=== PATIENT | female | born 2000 | race Caucasian/White ===

== ENCOUNTER 2021-03-14 21:18 | Emergency (ER) | payer MEDICAID, OTHER ==
[~2021-03-14] VITALS: Ht 165.1 cm; Wt 59.9 kg
[2021-03-14 22:07] LABS: BASOPHILS % (AUTO) 0.3 % (0-1); EOSINOPHILS % (AUTO) 0.3 % (0-6); HEMATOCRIT 42.8 % (35.0-45.0); HEMOGLOBIN 14.5 g/dl (12.0-16.0); LYMPHOCYTES # (AUTO) 1.4 X10'3 (1.1-4.8); LYMPHOCYTES % (AUTO) 15.4 % (21-51); MEAN CORPUSCULAR HEMOGLOBIN 31.9 PG (27.0-31.0); MEAN CORPUSCULAR HGB CONC 33.8 g/dL (33.0-36.5); MEAN CORPUSCULAR VOLUME 94.5 FL (78-98); MEAN PLATELET VOLUME 8.3 FL (7.4-10.4); MONOCYTES # (AUTO) 0.6 X10'3 (0-0.9); MONOCYTES % (AUTO) 6.1 % (2-12); NEUTROPHILS # (AUTO) 7.1 X10'3 (1.8-7.7); NEUTROPHILS % (AUTO) 77.9 % (42-75); PLATELET COUNT 334 X10'3 (140-440); RED BLOOD COUNT 4.53 X10'6 (4.20-5.60); RED CELL DISTRIBUTION WIDTH 12.8 % (11.5-14.5); WHITE BLOOD COUNT 9.1 X10'3 (4.5-11.0)
[2021-03-14 22:12] LABS: URINE HCG NEGATIVE (NEG)
[2021-03-14 22:21] LABS: ALANINE AMINOTRANSFERASE 21 U/L (12-78); ALBUMIN/GLOBULIN RATIO 1.1 (1.1-1.5); ALKALINE PHOSPHATASE 81 IU/L (46-116); ANION GAP 11 (8-16); ASPARTATE AMINO TRANSFERASE 11 U/L (10-37); BILIRUBIN,TOTAL 1.3 MG/DL (0.1-1.0); BLOOD UREA NITROGEN 5 MG/DL (7-18); CHLORIDE 106 MMOL/L (99-107); CREATININE 0.84 MG/DL (0.40-0.90); GLUCOSE 114 MG/DL (70-104); POTASSIUM 3.2 MMOL/L (3.5-5.1); SODIUM 141 MMOL/L (135-145); TOTAL CARBON DIOXIDE 24.3 MMOL/L (24-32); TOTAL PROTEIN 7.6 G/DL (6.4-8.2); eGFR 86 ML/MIN
[2021-03-14 22:25] LABS: URINE AMPHETAMINE SCREEN NEGATIVE (Neg); URINE BARBITUATE SCREEN NEGATIVE (Neg); URINE BENZODIAZEPINES SCREEN NEGATIVE (Neg); URINE CANNABINOID SCREEN POSITIVE (Neg); URINE COCAINE SCREEN NEGATIVE (Neg); URINE METHADONE SCREEN NEGATIVE (Neg); URINE OPIATE SCREEN NEGATIVE (Neg); URINE PHENCYCLIDINE SCREEN NEGATIVE (Neg)
[2021-03-14 22:26] LABS: CLARITY,URINE CLOUDY (Clear); COLOR,URINE YELLOW (Yellow); GLUCOSE, URINE NEGATIVE (Neg); KETONES,URINE 40 mg/dl (Neg); PROTEIN,URINE NEGATIVE (Neg); UA COLLECTION TYPE CLN CATCH MIDSTREAM
[2021-03-14 22:27] LABS: LEUKOCYTE ESTERASE ,URINE NEGATIVE (Neg); NITRITES, URINE NEGATIVE (Neg); OCCULT BLOOD,URINE SMALL (Neg); UROBILINOGEN,URINE 0.2 E.U/dL (0.2-1.0)
[2021-03-14 22:37] LABS: ETHANOL < 0.010 GM/DL (0.0-0.010)
[2021-03-14 22:45] LABS: ACETAMINOPHEN < 2.0 UG/ML (10-30)
[2021-03-14 22:47] LABS: BACTERIA,URINE 1+ /HPF (Neg); MUCUS STRANDS MANY /LPF (Neg); SQUAMOUS EPITHELIAL CELL,UR MANY /LPF (FEW)
[2021-03-14 22:48] LABS: RENAL CELLS, URINE FEW /HPF; WBC,URINE 0-4 /HPF (0-4)
[2021-03-14] MEDS ORDERED: potassium Cl 20 mEq SR tablet PO ONE (23:00)
--- NOTE | 2021-03-14 23:51 | NUR ---
Pt arrived in ED[facility] from main ER. Pt uses pronoun he/him/his. Pt states he is feeling suicidal because his girlfriend left him. Pt states that he has a history of self harm and shows bite grover on his knees. The skin is not broken but visible redness showing teeth pattern. Pt states his plan is to go out to the [place] and overdose on grandmothers "pills and injectables." Pt states "I dont know what the pills are, I havent researched dosages, I would just take them. This isnt a cry for help, or for attention, I just really want to . Pt is tearful.
[2021-03-15] MEDS ORDERED: TEST75GE TOP ×2 (00:15→00:23)
[2021-03-15] MEDS ORDERED: TEST200V10 IM (00:17)
--- NOTE | 2021-03-15 02:52 | NUR ---
pt awake sitting quietly in bed.
--- NOTE | 2021-03-15 05:00 | NUR ---
pt is laying in bed asleep, rr even and unlabored
--- NOTE | 2021-03-15 06:00 | NUR ---
Pt. asleep in bed in supine position. Normal R&R of respirations observed. Pt. in no apparent distress.
--- NOTE | 2021-03-15 07:53 | NUR ---
Pt. awake and sitting up in bed. 1:1 done at bedside, pt. reports SI with plan to inject herself with her grandmothers migraine medication. Pt. denies previous suicide attempts. Pt. reports feeling like she has nothing to live for after pt.'s girlfriend broke up with her. Pt. states, "I was with her for 10 years, that's half of my life". Pt. denies HI, A/V hallucinations. Pt. eating breakfast.
[2021-03-15] MEDS ORDERED: TESTOSTERONE TP SCH (08:00)
--- NOTE | 2021-03-15 10:00 | NUR ---
Pt. awake in bed and resting in high fowlers position. Pt. reports she will call her grandma to bring in her topical Testosterone ointment.
--- NOTE | 2021-03-15 11:05 | NUR ---
Pt. placed on [id number] by [facility] protective services social worker.
--- NOTE | 2021-03-15 13:00 | NUR ---
Pt. speak with admitting department. Pt. approved for emergency [facility].
--- NOTE | 2021-03-15 15:00 | NUR ---
Pt. had phone call with grandma. Pt. became tearful and hung up phone. Pt. does not want to talk about her feelings.
--- NOTE | 2021-03-15 15:00 | NUR ---
Pt. awake and reading in bed. Pt. in no apparent distress.
--- NOTE | 2021-03-15 17:00 | NUR ---
Pt. awake and reading book in bed. Pt. in no apparent distress.
[2021-03-15] MEDS ORDERED: potassium Cl 20 mEq SR tablet PO STA (17:10)
--- NOTE | 2021-03-15 18:25 | NUR ---
Received patient sitting up in bed; eating dinner. Patient is calm, cooperative and does not appear to be in distress.
--- NOTE | 2021-03-15 20:09 | NUR ---
Patient's SO visited and vist appeared to go well. Patient now standing up reading and does not appear to be in any distress.
--- NOTE | 2021-03-15 21:52 | NUR ---
Patient laying in bed awake; appears to be restless as patient continuously repositioning. No apparent distress observed.
--- NOTE | 2021-03-15 23:59 | NUR ---
Patient reading in bed; no apparent distress observed at this time.
--- NOTE | 2021-03-16 02:04 | NUR ---
Patient sleeping in bed and does not appear to be in distress. Even non labored respirations and self repositioning.
--- NOTE | 2021-03-16 04:08 | NUR ---
Patient up to use the restroom; no apparent distress observed.
--- NOTE | 2021-03-16 06:21 | NUR ---
Patient sitting up rocking in bed. Patient is quiet. Patient then moved to laying on right side and no rocking seen. Continue to monitor.
--- NOTE | 2021-03-16 07:51 | NUR ---
Patient awake and alert and sitting up in bed after using the BR. RN spoke with patient in room. Patient denies feeling suicidal at this time. Patient states her girlfriend came to see her and she feels even more confused. RN advised patient "one day at a time." Patient is not feeling anxious at this time and will advised the RN if she starts feeling anxious. Continue to monitor.
--- NOTE | 2021-03-16 09:23 | NUR ---
Patient just got off the phone and was crying. Patient was talking to someone about her girlfriend. Continue to monitor.
--- NOTE | 2021-03-16 11:10 | NUR ---
Patient reading a book. No distress observed. Continue to monitor.
--- NOTE | 2021-03-16 12:40 | NUR ---
RN gave patient toothbrush, toothpaste, soap, shampoo, brush, and deodorant with towels and basin. Patient was appreciative. Continue to monitor.
--- NOTE | 2021-03-16 13:15 | NUR ---
Patient eating lunch. No distress observed. Continue to monitor.
--- NOTE | 2021-03-16 15:10 | NUR ---
Patient's girlfriend visiting patient. Patient and girlfriend laying in bed together. RN advised both that they are not allowed to lay in bed together. GF moved to chair. Patient and GF seemed to be doing well. Continue to monitor.
--- NOTE | 2021-03-16 17:09 | NUR ---
Patient's girlfriend left and patient sitting up in bed reading. No distress observed. Continue to monitor.
--- NOTE | 2021-03-16 19:20 | NUR ---
Patient sitting up in bed and visiting with SO. Pleasant and cooperative; no apparent distress.
[2021-03-16] MEDS ORDERED: TYPE IN GENERIC & BRAND NAME OF PATIENT MED STRENGTH & FORM TP SCH (21:00)
--- NOTE | 2021-03-16 21:05 | NUR ---
Patient sitting up in bed reading his book. No apparent distrerss; patient continues to rock to soothe himself.
--- NOTE | 2021-03-16 22:10 | NUR ---
Patient laying in bed reading her book; no apparent distress at this time.
--- NOTE | 2021-03-17 00:20 | NUR ---
Patient observed rocking himself in bed; he declined needing PRN at this time. Encouraged to let sign writer letterer or painter know if he changes his mind. Patient currently laying in bed awake.
--- NOTE | 2021-03-17 02:21 | NUR ---
Patient sleeping and does no apparent distress. Even non labored respirations and self repositioning.
--- NOTE | 2021-03-17 04:08 | NUR ---
Patient sleeping; no apparent distress. Even non labored respiration and self repositioning.
[2021-03-17 06:05] VITALS: BP 118/72
--- NOTE | 2021-03-17 06:50 | NUR ---
Patient laying in bed supine awake and reading a book. No distress observed at this time. Continue to monitor.
--- NOTE | 2021-03-17 07:20 | NUR ---
Patient sleeping in bed. No distress observed. Continue to monitor.
--- NOTE | 2021-03-17 08:25 | NUR ---
Patient states she is still feeling suicidal and not safe to go home. Patient states she believes she needs help and needs to be on medication. Patient is tearful. Continue to monitor.
--- NOTE | 2021-03-17 09:30 | NUR ---
Patient's girlfriend is here to see her. Patient is calm and cooperative. Continue to monitor.
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
--- NOTE | 2021-03-17 12:42 | NUR ---
Rowan CRANDALL, brought down headphones for patient to assist with patient's anxiety. Continue to monitor
== END 2021-03-17 15:30 ==
LOC: ER 21:19
DX: R45.851 Suicidal ideations (principal); Z20.822 Contact with and (suspected) exposure to COVID-19; F12.90 Cannabis use, unspecified, uncomplicated; Z88.8 Allergy status to other drugs, medicaments and biological substances; Z79.899 Other long term (current) drug therapy
CPT/HCPCS: 36415; 80053; 80305; 80320; 80329; 81001; 81025; 84443; 85025; 87635; 99285; C9803

== ENCOUNTER 2021-06-28 06:27 | Emergency (ER) | payer MEDICAID, OTHER ==
[~2021-06-28] VITALS: Ht 160 cm; Wt 59.1 kg
[~2021-06-28 06:27] MED LIST: TEST75GE TOP
[2021-06-28] MEDS ORDERED: ondansetron/PF 4mg/2ml inj IV ONE (07:35)
[2021-06-28] MEDS ORDERED: normal saline 1000ML IV soln IVB ONE (07:35)
[2021-06-28] MEDS ORDERED: pantoprazole 40MG/D5 100ML BAG 100 ML IV ONE (07:35)
[2021-06-28 07:40] LABS: BASOPHILS # (AUTO) 0.1 X10'3 (0-0.2); BASOPHILS % (AUTO) 1.2 % (0-1); EOSINOPHILS # (AUTO) 0.1 X10'3 (0-0.9); EOSINOPHILS % (AUTO) 2.7 % (0-6); HEMATOCRIT 39.1 % (35.0-45.0); HEMOGLOBIN 13.1 g/dl (12.0-16.0); LYMPHOCYTES # (AUTO) 0.8 X10'3 (1.1-4.8); MEAN CORPUSCULAR HEMOGLOBIN 31.3 PG (27.0-31.0); MEAN CORPUSCULAR HGB CONC 33.5 g/dL (33.0-36.5); MEAN CORPUSCULAR VOLUME 93.7 FL (78-98); MEAN PLATELET VOLUME 8.6 FL (7.4-10.4); MONOCYTES % (AUTO) 20.3 % (2-12); NEUTROPHILS # (AUTO) 2.9 X10'3 (1.8-7.7); NEUTROPHILS % (AUTO) 59.8 % (42-75); PLATELET COUNT 310 X10'3 (140-440); RED BLOOD COUNT 4.17 X10'6 (4.20-5.60); RED CELL DISTRIBUTION WIDTH 13.2 % (11.5-14.5); WHITE BLOOD COUNT 4.8 X10'3 (4.5-11.0)
[2021-06-28] MEDS ORDERED: pantoprazole 40MG/NS 100ML BAG 100 ML IV ONE (07:40)
[2021-06-28] MEDS: morphine 2 MG/ML inj. syringe IV PRN ×5 (07:42→13:42)
[2021-06-28 07:50] LABS: ALANINE AMINOTRANSFERASE 17 U/L (12-78); ALBUMIN 3.9 G/DL (3.4-5.0); ALBUMIN/GLOBULIN RATIO 1.1 (1.1-1.5); ALKALINE PHOSPHATASE 60 IU/L (46-116); ANION GAP 18 (8-16); ASPARTATE AMINO TRANSFERASE 13 U/L (10-37); BLOOD UREA NITROGEN 7 MG/DL (7-18); BUN/CREATININE RATIO 7.4 (6.6-38.0); CALCIUM 8.9 MG/DL (8.5-10.1); CHLORIDE 104 MMOL/L (99-107); CREATININE 0.94 MG/DL (0.40-0.90); GLUCOSE 174 MG/DL (70-104); LIPASE 57 U/L (73-393); POTASSIUM 3.1 MMOL/L (3.5-5.1); SODIUM 141 MMOL/L (135-145); TOTAL CARBON DIOXIDE 18.7 MMOL/L (24-32); TOTAL PROTEIN 7.6 G/DL (6.4-8.2); eGFR 75 ML/MIN
[2021-06-28 08:55] LABS: BETA HCG,QUANTITATIVE < 1.0 mIU/ml
[2021-06-28] MEDS ORDERED: metoclopramide 5 mg/ml inj IV ONE (09:35)
[2021-06-28] MEDS ORDERED: HYDROmorphone inj. 0.5 MG/0.5 ML DISP.SYRIN IV ONE (09:35)
[2021-06-28 10:33] LABS: GLUCOSE, URINE NEGATIVE (Neg); KETONES,URINE >=80 mg/dl (Neg); LEUKOCYTE ESTERASE ,URINE NEGATIVE (Neg); NITRITES, URINE NEGATIVE (Neg); OCCULT BLOOD,URINE NEGATIVE (Neg); PROTEIN,URINE NEGATIVE (Neg); UROBILINOGEN,URINE 0.2 E.U/dL (0.2-1.0)
[2021-06-28 10:42] LABS: CLARITY,URINE SLIGHTLY CLOUDY (Clear); COLOR,URINE DARK YELLOW (Yellow); UA COLLECTION TYPE CLN CATCH MIDSTREAM
[2021-06-28 10:47] LABS: BACTERIA,URINE NONE SEEN /HPF (Neg); MUCUS STRANDS MANY /LPF (Neg); RBC,URINE NONE SEEN /HPF (0-2); SQUAMOUS EPITHELIAL CELL,UR FEW /LPF (FEW); WBC,URINE 0-4 /HPF (0-4)
[2021-06-28 13:08] LABS: TOTAL CELLS COUNTED 100
--- NOTE | 2021-06-28 13:09 | NUR ---
REPORT GIVEN TO ALEX DOBSON IN ER.
[2021-06-28 13:12] LABS: PLATELET ESTIMATE NORMAL
[2021-06-28] MEDS ORDERED: morphine 2 MG/ML inj. syringe IV PRN (13:45)
[2021-06-28] MEDS ORDERED: LORazepam 2 mg/ml vial IV ONE (13:45)
[2021-06-28 14:03] VITALS: BP 117/72
--- NOTE | 2021-06-28 14:08 | NUR ---
REPORT GIVEN TO FLIGHT ALEX LOBATO.
== END 2021-06-28 14:12 | disposition hospice, inpatient (51) ==
LOC: ER 06:28
DX: U07.1 COVID-19 (principal); N83.511 Torsion of right ovary and ovarian pedicle; F12.90 Cannabis use, unspecified, uncomplicated; Z79.899 Other long term (current) drug therapy; Z88.8 Allergy status to other drugs, medicaments and biological substances
CPT/HCPCS: 36415; 76856; 80053; 81001; 83690; 84702; 85007; 85025; 87635; 93976; 96374; 96375; 96376; 99285; C9113; C9803; J1170; J2060; J2270; J2405; J2765; J7030